=== PATIENT | female | born 1965 | race Caucasian/White ===

== ENCOUNTER 2017-05-27 12:45 | Emergency (ER) | payer BC ==
[2017-05-27 12:49] VITALS: BP 109/70; BMI 44.4
[2017-05-27] MEDS ORDERED: DUONEB 0.5 MG/3 MG ONE ×2 (12:49→13:33)
[2017-05-27] MEDS ORDERED: TUSSIONEX PENNKINETIC SUSP PO ONE (13:03)
[2017-05-27] MEDS ORDERED: TUSSIONEX PENNKINETIC SUSP ONE (13:04)
--- NOTE | 2017-05-27 13:04 | DR.GENAD ---
HPI - PCP Primary Care Physician: JOESPH CALL - Complaint/Symptoms Chief Complaint Doctors Comments: Patient presents with complaint cough and wheezing four days. Denies fever, vomiting or diarrhea. Denies sick contacts. Chief Complaint:: "BEING SICK COUGHING FOR FOUR DAYS NOW" Self Treatment fo Chief Complaint: WHEEZING THROUGHOUT - Source History Provided: Patient - Mode of Arrival Mode of Arrival: Ambulatory - Timing Onset of Chief Complaint: 05/24/17 PMH - PMH Past Medical History: Yes Past Medical History: Anxiety, Depression, Hypertension Past Medical History Comment: BREAST CANCER Past Surgical History: Yes Surgical History: , Cholecystectomy, Hysterectomy, Mastectomy - Family History History of Family Medical Conditions: Yes Family Medical History: Hypertension - Social History Does patient currently use any type of tobacco product: No Have you used tobacco products in the last 12 months: No Type of Tobacco Use: None Does any household member use tobacco: No Alcohol Use: None Lives With: Alone, Family Lives Where: Home - infectious screening In the last 2 months have you had wt loss of >10#?: NO Have you had fever, night sweats or hemotysis?: No Have you traveled outside the country in the last 6 months?: No Isolation: Standard ROS - Review of Systems Eyes: No Symptoms Reported ENTM: No Symptoms Reported Respiratoy: No Symptoms Reported Cardiovascular: No Symptoms Reported Gastrointestinal/Abdominal: No Symptoms Reported Genitourinary: No Symptoms Reported Neurological: No Symptoms Reported Musculoskeletal: No Symptoms Reported Integumentary: No Symptoms Reported Hematologic/Lymphatic: No Symptoms Reported Endocrine: No Symptoms Reported Psychiatric: No Symptoms Reported All Other Systems: Reviewed and Negative PE - Vital Signs Vitals: Pulse Rate 96 Respiratory Rate 18 Blood Pressure 109/70 O2 Sat by Pulse Oximetry 100 - General Limitations: No Limitations General Appearance: Alert, In No Apparent Distress - Head Head Exam: Normal Inspection, Atraumatic - Eyes Eye exam: Normal Appearance, PERRL, EOMI - ENT ENT Exam: Normal Exam External Ear Exam: Normal External Inspection TM/Canal Exam: Bilateral Normal Nose Exam: Normal Nose Exam Mouth Exam: Normal Inspection Throat Exam: Normal Inspection - Neck Neck Exam: Normal Inspection, Full ROM - Chest Chest Inspection: Normal Inspection - Respiratory Respiratory Exam: Normal Lung Sounds Bilat Respiratory Exam: Bilateral Clear to Auscultation - Cardiovascular Cardiovascular Exam: Regular Rate, Normal Rhythm - Abdominal Exam Abdominal Exam: Normal Inspection Abdominal Tenderness: negative: RUQ, RLQ, LUQ, LLQ, Epigastrium, Suprapubic, Diffuse, Mild, Moderate, Severe, Other - Extremities Extremities Exam: Normal Inspection, Full ROM - Back Back Exam: Normal Inspection, Full ROM - Neurologic Neurological Exam: Alert, Oriented X3, CN II-XII Intact - Psychiatric Psychiatric Exam: Normal Affect - Skin Skin Exam: Warm, Dry, Intact ROR - Labs Reviewed Laboratory: Influenza Type A (PCR) Negative (NEGATIVE) 05/27/17 13:15 Influenza Type B (PCR) Negative (NEGATIVE) 05/27/17 13:15 Streptococcus Screen Negative (NEGATIVE) 05/27/17 13:15 - XRAY XRAY Interpreted by: Radiologist (Mild left ventriculqar enlargement and probable mild chronic interstitial changes throughout both lungs with no acute pulmonary abnormality seen.) - Diagnosis Discharge Problem: Acute bronchitis Qualifiers: Bronchitis organism: unspecified organism Qualified Code(s): J20.9 - Acute bronchitis, unspecified - Discharge Plan Condition: Stable - Follow ups/Referrals Follow ups/Referrals: RAMSES CALL [Primary Care Provider] - 3 days - Instructions
--- NOTE | 2017-05-27 13:17 | RAD ---
Indication: Cough paragraphs exam: PA and lateral chest Comparison: None. Findings: The left ventricle is mildly enlarged. The pulmonary vessels are normal. Surgical clips are seen along the chest wall bilaterally and extending into the left axilla. There are mild increased i nterstitial markings throughout both lungs. No obvious consolidation or effusion is seen and the bone s are intact. Impression: Mild left ventricular enlargement and probable mild chronic interstitial changes throughout both lung s with no acute pulmonary abnormality seen. Postop changes along the chest wall and axillary regions bilaterally. Reported By:
[2017-05-27] MEDS ORDERED: DUONEB 0.5 MG/3 MG NEB ONE (13:31)
== END 2017-05-27 15:14 | disposition home or self-care (01) ==
LOC: ER 12:45
DX: J20.9 Acute bronchitis, unspecified (principal)
CPT/HCPCS: 71020; 87070; 87502; 87880; 94640; 96365; 99283; A4222; J7620